=== PATIENT | male | born 1980 | race Caucasian/White ===

== ENCOUNTER 2019-11-13 17:58 | Observation (INO) | payer OTHER, BC ==
--- NOTE | 2019-11-13 20:12 | ER Document Report ---
ED Hand/Wrist Injury - General Chief Complaint: Wrist Injury Stated Complaint: FALL/WRIST INJURY Time Seen by Provider: 11/13/19 20:02 Primary Care Provider: LIA HILILARD MD [Primary Care Provider] - Follow up as needed Notes: 39-year-old male presented to ED for complaint of pain to the right wrist. He states he fell about 4 PM this afternoon. 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 He states he landed on his arm. He is extremely morbidly obese at 209.56 kg. He is alert oriented respirations regular nonlabored speaking in full sentences. He did come by EMS and they did put a splint on his hand. He states it was very tight and felt like his fingers were getting a little numb. We did loosen it and looked at his arm. He will be going for x-rays and then we will reassess him. TRAVEL OUTSIDE OF THE [place] IN LAST 30 DAYS: No - HPI Injury to: Forearm, Wrist Onset: Just prior to arrival Where: Work Timing: Still present Quality of pain: Sharp, Throbbing Severity: Moderate Pain Level: 4 Context: Fall - Related Data Allergies/Adverse Reactions: No Known Allergies Allergy (Verified 12/02/12 09:01) Past Medical History - General Information source: Patient - Social History Smoking Status: Never Smoker Frequency of alcohol use: Rare Drug Abuse: None Lives with: Family Family History: Reviewed & Not Pertinent Patient has homicidal ideation: No - Past Medical History Cardiac Medical History: Reports: Hx Hypertension Pulmonary Medical History: Reports: None EENT Medical History: Reports: None Neurological Medical History: Reports: None Endocrine Medical History: Reports: None Renal/ Medical History: Reports: Hx Benign Prostatic Hyperplasia Malignancy Medical History: Reports None GI Medical History: Reports: None Musculoskeletal Medical History: Reports None Skin Medical History: Reports None Psychiatric Medical History: Reports: Hx Depression Traumatic Medical History: Reports: None Infectious Medical History: Reports: None Surgical Hx: Negative Past Surgical History: Reports: None - Immunizations Hx Diphtheria, Pertussis, Tetanus Vaccination: Yes Review of Systems - Review of Systems Constitutional: No symptoms reported EENT: No symptoms reported Cardiovascular: No symptoms reported Respiratory: No symptoms reported Gastrointestinal: No symptoms reported Genitourinary: No symptoms reported Male Genitourinary: No symptoms reported Musculoskeletal: Joint pain - Right wrist, Joint swelling Skin: No symptoms reported Hematologic/Lymphatic: No symptoms reported Neurological/Psychological: No symptoms reported -: Yes All other systems reviewed and negative Physical Exam - Vital signs Vitals: Temp Pulse Resp BP Pulse Ox 98.5 F 95 16 128/75 H 100 11/13/19 18:06 11/13/19 18:06 11/13/19 18:06 11/13/19 18:06 11/13/19 18:06 Interpretation: Normal - General General appearance: Appears well, Alert - HEENT Head: Normocephalic, Atraumatic Eyes: Normal Pupils: PERRL - Respiratory Respiratory status: No respiratory distress Chest status: Nontender Breath sounds: Normal Chest palpation: Normal - Cardiovascular Rhythm: Regular Heart sounds: Normal auscultation Murmur: No - Abdominal Inspection: Normal Distension: No distension Bowel sounds: Normal Tenderness: Nontender Organomegaly: No organomegaly - Back Back: Normal, Nontender - Extremities General upper extremity: Normal color, Normal temperature General lower extremity: Normal inspection, Nontender, Normal color, Normal ROM, Normal temperature, Normal weight bearing. No: Mary Jane's sign Wrist: Tender, Ecchymosis, Limited ROM - Neurological Neuro grossly intact: Yes Cognition: Normal Orientation: AAOx4 [place] Coma Scale Eye Opening: Spontaneous [place] Coma Scale Verbal: Oriented [place] Coma Scale Motor: Obeys Commands [place] Coma Scale Total: 15 Speech: Normal Motor strength normal: LUE, RUE, LLE, RLE Sensory: Normal - Psychological Associated symptoms: Normal affect, Normal mood - Skin Skin Temperature: Warm Skin Moisture: Dry Skin Color: Normal Course - Vital Signs Vital signs: Temp Pulse Resp BP Pulse Ox 98.5 F 95 16 128/75 H 100 11/13/19 18:06 11/13/19 18:06 11/13/19 18:06 11/13/19 18:06 11/13/19 18:06 Discharge - Discharge Referrals: LIA HILLIARD MD [Primary Care Provider] - Follow up as needed
--- NOTE | 2019-11-13 20:18 | ER Document Report ---
ED Medical Screen (RME) - General Chief Complaint: Wrist Injury Stated Complaint: FALL/WRIST INJURY Time Seen by Provider: 11/13/19 20:02 Primary Care Provider: LIA HILLIARD MD [Primary Care Provider] - Follow up as needed Mode of Arrival: Medic Information source: Patient Notes: 39-year-old male presented to ED for complaint of pain to the right wrist. He states he fell about 4 PM this afternoon. 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 He states he landed on his arm. He is extremely morbidly obese at 209.56 kg. He is alert oriented respirations regular nonlabored speaking in full sentences. He did come by EMS and they did put a splint on his hand. He states it was very tight and felt like his fingers were getting a little numb. We did loosen it and looked at his arm. He will be going for x-rays and then we will reassess him. I have greeted and performed a rapid initial assessment of this patient. A comprehensive ED assessment and evaluation of the patient, analysis of test results and completion of medical decision making process will be conducted by an additional ED providers. TRAVEL OUTSIDE OF THE [place] IN LAST 30 DAYS: No - Related Data Allergies/Adverse Reactions: No Known Allergies Allergy (Verified 12/02/12 09:01) Past Medical History - Social History Frequency of alcohol use: Rare Drug Abuse: None - Past Medical History Cardiac Medical History: Reports: Hx Hypertension Pulmonary Medical History: Reports: None EENT Medical History: Reports: None Neurological Medical History: Reports: None Endocrine Medical History: Reports: None Renal/ Medical History: Reports: Hx Benign Prostatic Hyperplasia Malignancy Medical History: Reports None GI Medical History: Reports: None Musculoskeltal Medical History: Reports None Skin Medical History: Reports None Psychiatric Medical History: Reports: Hx Depression Traumatic Medical History: Reports: None Infectious Medical History: Reports: None Surgical Hx: Negative Past Surgical History: Reports: None - Immunizations Hx Diphtheria, Pertussis, Tetanus Vaccination: Yes Physical Exam - Vital signs Vitals: Temp Pulse Resp BP Pulse Ox 98.5 F 95 16 128/75 H 100 11/13/19 18:06 11/13/19 18:06 11/13/19 18:06 11/13/19 18:06 11/13/19 18:06 Course - Vital Signs Vital signs: Temp Pulse Resp BP Pulse Ox 98.5 F 95 16 128/75 H 100 11/13/19 18:06 11/13/19 18:06 11/13/19 18:06 11/13/19 18:06 11/13/19 18:06 Doctor's Discharge - Discharge Referrals: LIA HILLIARD MD [Primary Care Provider] - Follow up as needed
--- NOTE | 2019-11-13 20:39 | RADIOLOGY REPORT (SQ) ---
CLINICAL INDICATION: fall pain and injury. Pain post fall. TECHNIQUE: 3 view(s) were obtained of the right wrist. COMPARISON: None. FINDINGS: Acute displaced radial styloid fracture. Perilunate dislocation with dorsal displacement and malpositioning of the carpals. Mild osteophyte. Soft tissue swell. IMPRESSION: Acute displaced radial styloid fracture. Perilunate dislocation with dorsal displacement and malpositioning of the carpals.
[2019-11-13] MEDS ORDERED: ONDANSETRON 4 MG TAB.RAPDIS PO ONE (22:53)
[2019-11-13] MEDS ORDERED: OXYCODONE-ACETAMINOPHEN 5-325 MG TABLET PO ONE (22:53)
[2019-11-13] MEDS ORDERED: RINGERS SOLUTION,LACTATED 1,000 ML IV PRN (23:59)
--- NOTE | 2019-11-14 00:08 | ER Document Report ---
ED Hand/Wrist Injury - General Chief Complaint: Wrist Injury Stated Complaint: FALL/WRIST INJURY Time Seen by Provider: 11/13/19 20:02 Primary Care Provider: LIA HILLIARD MD [Primary Care Provider] - Follow up as needed Mode of Arrival: Medic Notes: Patient is a 39-year-old male who comes emergency department chief complaint of fall and injury to his right wrist. 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 He states that he immediately felt a sharp pain in his wrist and had swelling. Patient is not on a blood thinner. He denies any other injuries. In regards to his back he is able to ambulate, denies numbness, states his back does not currently hurt. He denies head injury, he denies any other complaints. Patient is morbidly obese at 209.5 kg. TRAVEL OUTSIDE OF THE [place] IN LAST 30 DAYS: No - Related Data Allergies/Adverse Reactions: No Known Allergies Allergy (Verified 12/02/12 09:01) Past Medical History - General Information source: Patient - Social History Smoking Status: Never Smoker Frequency of alcohol use: Rare Drug Abuse: None Family History: Reviewed & Not Pertinent Patient has homicidal ideation: No - Past Medical History Cardiac Medical History: Reports: Hx Hypertension Pulmonary Medical History: Reports: None EENT Medical History: Reports: None Neurological Medical History: Reports: None Endocrine Medical History: Reports: None Renal/ Medical History: Reports: Hx Benign Prostatic Hyperplasia Malignancy Medical History: Reports None GI Medical History: Reports: None Musculoskeletal Medical History: Reports None Skin Medical History: Reports None Psychiatric Medical History: Reports: Hx Depression Traumatic Medical History: Reports: None Infectious Medical History: Reports: None Surgical Hx: Negative Past Surgical History: Reports: None - Immunizations Hx Diphtheria, Pertussis, Tetanus Vaccination: Yes Physical Exam - Vital signs Vitals: Temp Pulse Resp BP Pulse Ox 98.5 F 95 16 128/75 H 100 11/13/19 18:06 11/13/19 18:06 11/13/19 18:06 11/13/19 18:06 11/13/19 18:06 Course - Vital Signs Vital signs: Temp Pulse Resp BP Pulse Ox 98.5 F 95 16 128/75 H 100 11/13/19 18:06 11/13/19 18:06 11/13/19 18:06 11/13/19 18:06 11/13/19 18:06 Discharge - Discharge Referrals: LIA HILLIARD MD [Primary Care Provider] - Follow up as needed
[2019-11-14] MEDS ORDERED: OXYCODONE-ACETAMINOPHEN 5-325 MG TABLET PO PRN (00:09)
[2019-11-14] MEDS ORDERED: PROPOFOL INJ 200 MG/20 ML VIAL IV ONE ×2 (01:20→16:47)
[2019-11-14] MEDS ORDERED: PROPOFOL 1,000 MG/100 ML INFUS..BTL IV ONE (01:38)
[2019-11-14] MEDS ORDERED: FENTANYL CITRATE INJ/PF 100 MCG/2 ML AMPUL IV ONE ×2 (01:52→01:54)
--- NOTE | 2019-11-14 01:59 | Progress Note ---
Provider Note Provider Note: Procedure note: Preprocedure diagnosis: Right trans-styloid perilunate dislocation Post procedure diagnosis: Same Procedure performed: Closed reduction trans-styloid perilunate dislocation Anesthesia: Conscious sedation Procedure in detail: Patient was placed under consultation under supervision of emergency room physician. Once adequately sedated close reduction region was performed including traction, extension, volar to dorsal directed force of the lunate with flexion of the wrist. This successfully reduced the trans-styloid perilunate dislocation. Patient was then placed in a splint. Patient tolerated procedure well. Post procedure physical examination unchanged. Intact flexion-extension of the digits. No sensory deficits. Cap refill less than 2 seconds.
--- NOTE | 2019-11-14 02:00 | PDOC H&P ---
History of Present Illness Admission Date/PCP: 11/14/19 00:26 MAHSA GRIMES Patient complains of: Right wrist pain History of Present Illness: VIKKI OSORIO is a 39 year old male who sustained a fall onto his outstretched right wrist while at work on concrete. Patient had notable deformity and weakness of his wrist. Was brought by EMS to the emergency room. X-rays demonstrated fracture dislocation. Patient states initially had numbness and tingling although it has improved. Notes pain with any attempted motion of the wrist or digits. Pain 4/5. Past Medical History Cardiac Medical History: Reports: Hypertension Pulmonary Medical History: Reports: None EENT Medical History: Reports: None Neurological Medical History: Reports: None Endocrine Medical History: Reports: None Malignancy Medical History: Reports: None GI Medical History: Reports: None Musculoskeltal Medical History: Reports: None Skin Medical History: Reports: None Psychiatric Medical History: Reports: Depression Traumatic Medical History: Reports: None Infectious Medical History: Reports: None Past Surgical History Past Surgical History: Reports: None Social History Smoking Status: Never Smoker Family History Family History: Reviewed & Not Pertinent Parental Family History Reviewed: No Children Family History Reviewed: No Sibling(s) Family History Reviewed.: No Medication/Allergy Home Medications: No Home Medications 1 12/02/12 Ondansetron HCl [Zofran 4 mg Tablet] 1 - 2 tab PO Q4H PRN #10 tablet 12/02/12 Oxycodone HCl/Acetaminophen [Percocet 5-325 mg Tablet] 1 - 2 tab PO ASDIR PRN #25 tablet 12/02/12 Tamsulosin HCl [Flomax 0.4 mg Cap.sr] 0.4 mg PO DAILY #7 cap.sr.24h 12/02/12 Allergies/Adverse Reactions: No Known Allergies Allergy (Verified 12/02/12 09:01) Review of Systems Constitutional: ABSENT: chills, fever(s), headache(s), weight gain, weight loss Eyes: ABSENT: visual disturbances Ears: ABSENT: hearing changes Cardiovascular: ABSENT: chest pain, dyspnea on exertion, edema, orthropnea, palpitations Respiratory: ABSENT: cough, hemoptysis Gastrointestinal: ABSENT: abdominal pain, constipation, diarrhea, hematemesis, hematochezia, nausea, vomiting Genitourinary: ABSENT: dysuria, hematuria Musculoskeletal: PRESENT: as per HPI Integumentary: ABSENT: rash, wounds Neurological: ABSENT: abnormal gait, abnormal speech, confusion, dizziness, focal weakness, syncope Psychiatric: ABSENT: anxiety, depression, homidical ideation, suicidal ideation Endocrine: ABSENT: cold intolerance, heat intolerance, menstrual abnormalities, polydipsia, polyuria Hematologic/Lymphatic: ABSENT: easy bleeding, easy bruising, lymphadenopathy Physical Exam Vital Signs: Temp Pulse Resp BP Pulse Ox 98.5 F 95 16 128/75 H 100 11/13/19 18:06 11/13/19 18:06 11/13/19 18:06 11/13/19 18:06 11/13/19 18:06 Intake & Output 11/12/19 11/13/19 11/14/19 06:59 06:59 06:59 Weight 209.56 kg General appearance: PRESENT: no acute distress, morbidly obese, well-developed, well-nourished Head exam: PRESENT: atraumatic, normocephalic Eye exam: PRESENT: conjunctiva pink, EOMI, PERRLA. ABSENT: scleral icterus Ear exam: PRESENT: normal external ear exam Mouth exam: PRESENT: moist, tongue midline Neck exam: PRESENT: full ROM. ABSENT: carotid bruit, JVD, lymphadenopathy, thyromegaly Respiratory exam: PRESENT: unlabored Cardiovascular exam: PRESENT: RRR. ABSENT: diastolic murmur, rubs, systolic murmur Pulses: PRESENT: normal dorsalis pedis pul, +2 pedal pulses bilateral Vascular exam: PRESENT: normal capillary refill GI/Abdominal exam: PRESENT: normal bowel sounds, soft. ABSENT: distended, guarding, mass, organolmegaly, rebound, tenderness Rectal exam: PRESENT: deferred Musculoskeletal exam: PRESENT: other - Right wrist: Swelling noted along the radiocarpal joint with no significant deformity. Small abrasion noted dorsally. Intact IP/MP flexion/extension weakness with EPL/FPL. Limited secondary to pain. Compartments soft and compressible no sign of compartment syndrome. Intact sensation to light touch. Radial pulse 2+. Normal cap refill. Normal skin turgor. Neurological exam: PRESENT: alert, awake, oriented to person, oriented to place, oriented to time, oriented to situation, CN II-XII grossly intact. ABSENT: motor sensory deficit Psychiatric exam: PRESENT: appropriate affect, normal mood. ABSENT: homicidal ideation, suicidal ideation Skin exam: PRESENT: dry, intact, warm. ABSENT: cyanosis, rash Results Impressions: Wrist X-Ray 11/13/19 20:07 IMPRESSION: Acute displaced radial styloid fracture. Perilunate dislocation with dorsal displacement and malpositioning of the carpals. Status: Image reviewed by me - I have reviewed patient's radiographs consistent with trans-styloid perilunate dislocation dorsally. Assessment & Plan - Diagnosis (1) Transstyloid-perilunate fracture dislocation Is this a current diagnosis for this admission?: Yes Plan: Patient sustained a trans-styloid perilunate dislocation. Today we discussed treatment options I have recommended proceeding with close reduction emergency room with splinting. Under conscious sedation closed reduction was successful however patient will require definitive fixation. Decision was made to proceed with operative intervention the following day which includes open reduction to fixation of the trans-styloid perilunate dislocation. Details and pathophysiology of patient's injury have been explained including sequelae and prognosis such as limited range of motion, recurrent instability. Both discussed details of postoperative complications or Intra-Op complications including infection, postoperative pain, postoperative stiffness, recurrent instability, infection patient is verbalized understanding consented for open reduction fixation right wrist. - Time Time Spent: 30 to 50 Minutes Medications reviewed and adjusted accordingly: Yes Anticipated Discharge Disposition: Home, Self Care Anticipated Discharge Timeframe: within 48 hours
--- NOTE | 2019-11-14 02:03 | ER Document Report ---
ED General - General Chief Complaint: Wrist Injury Stated Complaint: FALL/WRIST INJURY Time Seen by Provider: 11/13/19 20:02 Mode of Arrival: Medic TRAVEL OUTSIDE OF THE [place] IN LAST 30 DAYS: No - HPI Notes: Patient is a 39-year-old male who presents to the emergency department for evaluation after a fall. He states he fell onto his right wrist. He is left- hand dominant. He is not on blood thinners. He denies hitting his head. Denies losing consciousness. No neck or back pain. He is never had surgery before. - Related Data Allergies/Adverse Reactions: No Known Allergies Allergy (Verified 12/02/12 09:01) Home Medications: Unknown antihypertensive Past Medical History - General Information source: Patient - Social History Smoking Status: Never Smoker Frequency of alcohol use: Rare Drug Abuse: None Family History: Reviewed & Not Pertinent Patient has homicidal ideation: No - Past Medical History Cardiac Medical History: Reports: Hx Hypertension Pulmonary Medical History: Reports: None EENT Medical History: Reports: None Neurological Medical History: Reports: None Endocrine Medical History: Reports: None Renal/ Medical History: Reports: Hx Benign Prostatic Hyperplasia Malignancy Medical History: Reports None GI Medical History: Reports: None Musculoskeletal Medical History: Reports None Skin Medical History: Reports None Psychiatric Medical History: Reports: Hx Depression Traumatic Medical History: Reports: None Infectious Medical History: Reports: None Surgical Hx: Negative Past Surgical History: Reports: None - Immunizations Hx Diphtheria, Pertussis, Tetanus Vaccination: Yes Review of Systems - Review of Systems Musculoskeletal: See HPI -: Yes All other systems reviewed and negative Physical Exam - Vital signs Vitals: Temp Pulse Resp BP Pulse Ox 98.5 F 95 16 128/75 H 100 11/13/19 18:06 11/13/19 18:06 11/13/19 18:06 11/13/19 18:06 11/13/19 18:06 - Notes Notes: This is a morbidly obese 39-year-old male who appears her stated age, no acute distress. Head is normocephalic atraumatic, pupils are equal round, reactive to light. Oral mucosa is moist. Uvula is midline. He is a Mallampati 2. Heart is regular rate and rhythm, lungs are clear to auscultation bilaterally. Abdomen is obese, nontender, normoactive bowel sounds. Patient is awake and alert, neurological exam is nonfocal. He is cooperative with examiner. Examination of the left upper extremity yields tenderness to palpation over the medial aspect of the wrist. There is obvious soft tissue swelling, but physical exam is limited secondary to patient's body habitus. He is neurovascularly intact distally to the left upper extremity. Capillary refill is brisk, radial pulse 2+. Sensation intact. Course - Re-evaluation Re-evalutation: 11/14/19 02:03 Patient presents to the emergency department for evaluation. His x-ray revealed a perilunate dislocation. Dr. Mnodragon was consulted. He did come to the department for evaluating and reduction of this patient. I did perform sedation on this patient, please see separate procedure note. Patient tolerated this well. He was placed in a sugar tong splint, was neurovascularly intact following. Patient will be admitted for further care. - Vital Signs Vital signs: Temp Pulse Resp BP Pulse Ox 98.5 F 95 16 128/75 H 100 11/13/19 18:06 11/13/19 18:06 11/13/19 18:06 11/13/19 18:06 11/13/19 18:06 - Diagnostic Test Radiology reviewed: Image reviewed, Reports reviewed Radiology results interpreted by me: 11/14/19 02:03 Wrist X-Ray 11/13/19 20:07 IMPRESSION: Acute displaced radial styloid fracture. Perilunate dislocation with dorsal displacement and malpositioning of the carpals. Procedures - Conscious Sedation Conscious sedation Time started: 01:44 Time completed: 01:58 Consent obtained: Yes Indication: Reduction of right wrist fracture Prior complications: Procedural sedation Pt with a mild systemic disease.: P2. - ASA Classification. Airway Evaluation: Abnormal 3-3-2 rule, Obese Mallampati Classification: Class 2 Used during procedure: Suction available, IV access obtained, Pulse ox on pt., potline monitor on pt. Medications administered: Diprivan - 160 mg total Reversal agents: None I personally performed/intraservice time: Sedation, 30 min or less Complications: No Discharge - Discharge Clinical Impression: Transstyloid-perilunate fracture dislocation Condition: Stable Disposition: ADMITTED OBSERVATION Admitting Provider: Dr. Mondragon Unit Admitted: Surgical Floor
--- NOTE | 2019-11-14 02:43 | RADIOLOGY REPORT (SQ) ---
EXAM DESCRIPTION: XR WRIST 3 OR MORE VIEWS COMPLETED DATE/TME: 11/14/2019 00:00 CLINICAL HISTORY: 39 years Male, POST REDUCTION COMPARISON: None. Findings: Acute comminuted intra-articular fracture of the right radial styloid includes a 1.9 cm fragment and 0.4 cm distraction. Intra-articular fragments at the right wrist joint measure up to 0.5 cm including the radiocarpal and scapholunate joint. 0.5 cm right scapholunate joint space indicative of scapholunate ligamentous tear. Swelling. Bones, joints, and soft tissues of the RIGHT XR WRIST 3 OR MORE VIEWS appear otherwise unremarkable. IMPRESSION: 1. Acute comminuted intra-articular fracture of the right radial styloid includes a 1.9 cm fragment and 0.4 cm distraction. Intra-articular fragments at the right wrist joint measure up to 0.5 cm including the radiocarpal and scapholunate joint. 2. 0.5 cm right scapholunate joint space indicative of scapholunate ligamentous tear.
[2019-11-14] MEDS: MORPHINE SULFATE 10 MG/ML INJ IV PRN ×4 (03:23→13:58)
[2019-11-14 05:06] LABS: ANION GAP 6 (5-19); BLOOD UREA NITROGEN 14 mg/dL (7-20); CALCIUM 8.6 mg/dL (8.4-10.2); CARBON DIOXIDE 26 mmol/L (22-30); CHLORIDE 106 mmol/L (98-107); GLUCOSE 98 mg/dL (75-110); POTASSIUM 4.1 mmol/L (3.6-5.0)
--- NOTE | 2019-11-14 09:32 | PDOC PROGRESS REPORT ---
Subjective Progress Note for:: 11/14/19 Reason For Visit: Patient lying in bed comfortably. States he continues to have pain in his right wrist. Has noticed some numbness in the thumb and index finger. States morphine does provide some relief although not long-lasting. Physical Exam Vital Signs: Temp Pulse Resp BP Pulse Ox 97.5 F 71 18 162/96 H 99 11/14/19 05:00 11/14/19 05:00 11/14/19 05:00 11/14/19 05:00 11/14/19 05:00 Intake & Output 11/13/19 11/14/19 11/15/19 06:59 06:59 06:59 Weight 185.9 kg Musculoskeletal exam: PRESENT: other - Right wrist: Splint intact. Intact IP flexion/extension. EPL/FPL intact. Intact sharp versus light touch thumb index middle and ring finger. Hypoesthesias noted on the middle and ring finger. Compartments soft and compressible no sign of compartment syndrome. Radial pulse 2+. Cap refill less than 2 seconds. Results Laboratory Results: 11/14/19 00:02 11/14/19 00:02 Sodium 138.0 Potassium 4.1 Chloride 106 Carbon Dioxide 26 Anion Gap 6 BUN 14 Creatinine 0.96 Est GFR ( Amer) > 60 Glucose 98 Calcium 8.6 Impressions: Wrist X-Ray 11/14/19 00:00 IMPRESSION: 1. Acute comminuted intra-articular fracture of the right radial styloid includes a 1.9 cm fragment and 0.4 cm distraction. Intra-articular fragments at the right wrist joint measure up to 0.5 cm including the radiocarpal and scapholunate joint. 2. 0.5 cm right scapholunate joint space indicative of scapholunate ligamentous tear. Assessment & Plan - Diagnosis (1) Transstyloid-perilunate fracture dislocation Is this a current diagnosis for this admission?: Yes Plan: Patient sustained Anderson styloid perilunate fracture dislocation. I have reviewed CT scan which demonstrates no evidence of additional fracture there is avulsion fractures of the scaphoid lunate and likely triquetrum. There is also subluxation of the capitate lunate joint at this point patient is set up for definitive treatment which includes open reduction to fixation perilunate fracture dislocation. Postoperative expectations, outcomes and prognosis have been explained patient is verbalized understanding and consented for surgical procedure. Risk including neurovascular is, infection, postoperative pain, postoperative stiffness, recurrent instability, posttraumatic arthritis. - Time Time Spent with patient: Less than 15 minutes
[2019-11-14 09:43] LABS: HEMATOCRIT 38.5 % (37.9-51.0); HEMOGLOBIN 12.7 g/dL (13.5-17.0); MEAN CORPUSCULAR HEMOGLOBIN 27.3 pg (27.0-33.4); MEAN CORPUSCULAR VOLUME 83 fl (80-97); PLATELET COUNT 253 10^3/uL (150-450); RED BLOOD COUNT 4.65 10^6/uL (4.35-5.55); RED CELL DISTRIBUTION WIDTH 15.5 % (11.5-14.0); WHITE BLOOD COUNT 8.9 10^3/uL (4.0-10.5)
--- NOTE | 2019-11-14 10:26 | RADIOLOGY REPORT (SQ) ---
EXAM DESCRIPTION: CT RT UPPER EXTREMITY WITHOUT IMAGES COMPLETED DATE/TIME: 11/14/2019 8:20 am REASON FOR STUDY: post reduction COMPARISON: 11/14/2019 and 11/13/2019. TECHNIQUE: Axial imaging performed through the right wrist with reformatted coronal and sagittal bhavna ging windowed for bone and soft tissues. Images saved to PACS. 3D IMAGING: Were 3D images as MIP, SSD, or volume rendering performed at the work station? Yes. All CT scanners at this facility use dose modulation, iterative reconstruction, and/or weight based d osing when appropriate to reduce radiation dose to as low as reasonably achievable (ALARA). [facility]: Dose Right [facility]: CareDose [facility]: Dose Right [facility]: Teradose 4D [facility]: [employer] Technologies LIMITATIONS: None. RADIATION DOSE: CT Rad equipment meets quality standard of care and radiation dose reduction techniq ues were employed. CTDIvol: 4.6 mGy. DLP: 104 mGy-cm. mGy. FINDINGS: There is complex fracture dislocation. There is a displaced fracture of the radial styloi d which is displaced laterally and posteriorly. Approximately 8 mm displacement of the fracture frag ment from the distal portion the radius. The scaphoid is subluxed laterally and interposed between t he distal radius and radial fragment. There is marked separation between the scaphoid and lunate, wi th 14 mm of separation. The capitate is displaced laterally and dorsally in relation to the lunate. There is also mild anterior and lateral displacement of the lunate with respect to the radius with d orsal tilt. The triquetrum is interposed between the lunate and hamate. There are several tiny bony fragments along the dorsal wrist visualized on the sagittal images, likely originating from the scap hoid. There are also tiny bony fragments located lateral and inferior to the lunate, likely originat ing from the triquetrum. There is a 4.4 mm bony fragment posterior to the base of the capitate. Unc lear origin of this fracture fragment. There is also a 5 mm bony fragment anterior to the hook of th e hamate. IMPRESSION: COMPLEX FRACTURE DISLOCATION. TECHNICAL DOCUMENTATION: JOB ID: [id number] Quality ID # [id number]: Final reports with documentation of one or more dose reduction techniques (e.g., Au tomated exposure control, adjustment of the mA and/or kV according to patient size, use of iterative reconstruction technique) 2010 [employer]- All Rights Reserved Reading location - IP/workstation name: [email or web address]
[2019-11-14] MEDS ORDERED: SUCCINYLCHOLINE CHLORIDE INJ 200 MG/10 ML VIAL ONE (15:27)
[2019-11-14] MEDS ORDERED: BUPIVACAINE HCL 0.5 % INJ/PF 30 ML SDV ONE (16:42)
[2019-11-14] MEDS ORDERED: MIDAZOLAM 2 MG/2 ML INJ ONE (16:46)
[2019-11-14] MEDS ORDERED: FENTANYL CITRATE INJ/PF 100 MCG/2 ML AMPUL ONE ×2 (16:46→18:38)
[2019-11-14] MEDS ORDERED: ONDANSETRON HCL INJ/PF 4 MG/2 ML SDV ONE (16:46)
[2019-11-14] MEDS ORDERED: ALBUTEROL SULFATE HFA (90 MCG/PUFF) 8 GM MDI IH ONE (17:17)
[2019-11-14] MEDS ORDERED: CEFAZOLIN INJ 1 GM VIAL ONE (17:17)
[2019-11-14] MEDS ORDERED: DIPHENHYDRAMINE HCL 50 MG/ML VIAL IV PRN (17:53)
[2019-11-14] MEDS ORDERED: MEPERIDINE HCL/PF INJ 25 MG/1 ML DISP.SYRIN IV PRN (17:53)
[2019-11-14] MEDS ORDERED: MORPHINE SULFATE 10 MG/ML INJ IV PRN (17:53)
[2019-11-14] MEDS ORDERED: FENTANYL CITRATE INJ/PF 100 MCG/2 ML AMPUL IV PRN ×3 (17:53)
[2019-11-14] MEDS ORDERED: ONDANSETRON HCL INJ/PF 4 MG/2 ML SDV IV PRN (17:53)
[2019-11-14] MEDS ORDERED: PROMETHAZINE HCL INJ 25 MG/1 ML VIAL IV PRN ×2 (17:53)
[2019-11-14] MEDS: CEFAZOLIN 2 GM/D5W RTU 2 GM/50 ML RTUPB IV SCH ×2 (18:11→23:34)
--- NOTE | 2019-11-14 19:26 | EKG REPORT ---
SEVERITY:- NORMAL ECG - SINUS RHYTHM : Confirmed by: Suresh Mcnulty MD 14-Nov-2019 19:25:41
[2019-11-14] MEDS ORDERED: KETOROLAC TROMETHAMINE INJ/PF 30 MG/1 ML SDV IV PRN (20:09)
--- NOTE | 2019-11-14 20:32 | Operative Report ---
Operative Report DATE OF SURGERY: 11/14/19 PREOPERATIVE DIAGNOSIS: Right wrist trans-styloid perilunate fracture dislocati on POSTOPERATIVE DIAGNOSIS: Same OPERATION: Open reduction internal fixation right trans-styloid perilunate dislocation. Open right carpal tunnel release SURGEON: MARINA CASTRO ANESTHESIA: GA COMPLICATIONS: None ESTIMATED BLOOD LOSS: Minimal PROCEDURE: Indication for above procedure: 39-year-old male who sustained a fall onto his outstretched right wrist. Given patient's larger size this resulted in increased energy a fall resulting in a trans-styloid perilunate dislocation. Patient was seen the emergency room where this was reduced and placed in a splint. CT scan postop he demonstrated recurrence of his subluxation given the severity of his injury along with preoperative numbness decision was made to treat with operative intervention which include open reduction internal fixation with open carpal tunnel release right trans-styloid perilunate dislocation. Procedure In Detail: Patient was seen and evaluated in the preoperative holding area. The RIGHT upper extremity was initialized and marked. Patient received 2g of Ancef IV for bacterial prophylaxis. Patient was taken back to the operative room where transferred to the operative table and placed under general anesthesia. Once they were adequately anesthetized a nonsterile tourniquet was placed on the upper extremity. Patient had considerable contamination of his hands with oil and dirt this was pre-cleansed with chlorhexidine scrub. A surgical team debriefing was performed ensuring all instrumentation was available, the surgical procedure was discussed with possible concerns reviewed. The upper extremity was prepped with chlorhexidine and alcohol and draped in a sterile fashion. A timeout was done identifying correct patient, procedure and extremity everyone in attendance agree with this and verbalized no concerns. The extremity was exsanguinated the tourniquet was inflated to 250 mmHg. Longitudinal skin incision was made in line with the radial border of the middle finger and extended ulnarly with a Brittany extension proximal to the wrist crease. Blunt dissection was performed palmar fascia was incised in line with the skin incision exposing the transverse carpal ligament. The transverse carpal ligament was then released distally to the adipose protecting the superficial palmar arch. There was hematoma within the carpal canal. Notable compression at the wrist flexion crease with hourglassing of the nerve no e vidence of nerve discontinuity. The volar antebrachial fascia was then released freeing the nerve. Wound was copiously irrigated with normal saline. And peripheral veins were coagulated bipolar cautery. Skin was then closed with interrupted 3-0 nylon suture. Monitored skin incision was made in line with the third metacarpal just proximal to Mika's tubercle. Blunt dissection was performed. Superficial radial nerve was identified and protected. Third dorsal compartment was released and EPL tendon transposed radially. The distal portion of the extensor retinaculum was released and extensor tendons retracted ulnarly. The wrist capsule was identified there is complete tear of the dorsal radial carpal ligament from the radius capsulotomy was made in a Chamberlain type fashion radially based to expose the underlying carpus. There is significant malalignment of the carpus with multiple avulsion fractures. Wound was then copiously irrigated with normal saline. Any loose bodies were excised. There is notable chondral damage along the proximal aspect of the capitate and radial aspect of the scaphoid. Avulsion of the scapholunate ligament from the scaphoid was noted. There is also fracture of the radial styloid tip with the attachment of the radial collateral ligament. Joystick 0.062 K wires were placed within the scaphoid and lunate reducing the scapholunate interval. Skin incision was made along the radial styloid blunt dissection was performed. A 0.062 K wire was placed across the scapholunate interval obtaining provisional fixation. A 0.045 K wire was then placed p roviding further fixation. Under direct visualization the capitate lunate articulation was reduced, this was secured with a scaphoid capitate pin. The radial styloid fragment was reduced and held with 20.045 K wires. While maintaining reduction of the lunate and triquetral interval a total of 20.062 K wires were placed along the LT interval. C-arm fluoroscopy was then obtained demonstrating acceptable reduction of the midcarpal joint, scaphoid lunate and lunotriquetral interval with worship of Gilulas lines. K wires were then cut below the skin. Attention then turned to ligament repair. A Arthrex suture anchor was placed along the dorsal aspect of the scaphoid under C arm guidance. The scapholunate ligament was then repaired with a Han-Tayo type suture. A dorsal capsulodesis was performed bringing a strip of dorsal intercarpal ligament was then utilized and secured to the distal radius with a Arthrex bio composite suture tack. The remainder of the capsule was then tied pants over vest with 3-0 Ethibond and 2-0 FiberWire suture. C arm fluoroscopy was then obtained demonstrating acceptable alignment. Wounds were then copiously irrigated with normal saline. Tourniquet was deflated. A superficial vein along the dorsum of the wrist was tied off with silk suture. Remainder of the bleeding was controlled with bipolar cautery into the wounds were dry. Subcutaneous tissue was closed with 3-0 Monocryl suture. Skin was closed with running horizontal mattress 3-0 nylon suture. 30 cc of 0.5% bupivacaine without epinephrine was injected for postoperative pain c ontrol. Wound was dressed Xeroform for fours and patient was placed in a sugar tong splint. Sponge counts, instrument counts, needle counts were correct. Patient was then awoken from anesthesia. Transferred from the operating room table to the operating room stretcher. There was no intraoperative complications patient tolerated procedure well stable to PACU. Postop plan: Patient will follow-up in the office in 2 weeks at which point we will be transition to short arm cast. We will obtain x-rays at that time. Plan will be for pin removal in the operating room at approximately 10-12 weeks.
--- NOTE | 2019-11-14 22:35 | PDOC CONSULTATION ---
Consultation Consult Date: 11/14/19 Provider Consulted: MELISSA JOSE Consult reason:: SHERMAN History of Present Illness Admission Date/PCP: 11/14/19 00:26 MAHSA GRIMES History of Present Illness: VIKKI OSORIO is a 39 year old male who is here for ORIF of the wrist fracture admitted by Dr. Mondragon. He has a history of obstructive sleep apnea and uses CPAP at home. Our service was consulted for management of SHERMAN. Past Medical History Cardiac Medical History: Reports: Hypertension Pulmonary Medical History: Reports: None EENT Medical History: Reports: None Neurological Medical History: Reports: None Endocrine Medical History: Reports: None Malignancy Medical History: Reports: None GI Medical History: Reports: None Musculoskeltal Medical History: Reports: None Skin Medical History: Reports: None Psychiatric Medical History: Reports: Depression Traumatic Medical History: Reports: None Infectious Medical History: Reports: None Past Surgical History Past Surgical History: Reports: None Social History Smoking Status: Never Smoker Hx Recreational Drug Use: No Hx Prescription Drug Abuse: No - Advance Directive Resuscitation Status: Full Code Family History Family History: Reviewed & Not Pertinent Parental Family History Reviewed: Yes Children Family History Reviewed: NA Sibling(s) Family History Reviewed.: Yes Medication/Allergy Home Medications: Tamsulosin HCl [Flomax 0.4 mg Cap.sr] 0.4 mg PO DAILY #7 cap.sr.24h 12/02/12 Amlodipine Besylate [Norvasc 10 mg Tablet] 10 mg PO DAILY 11/14/19 Bupropion HCl [Bupropion Xl] 150 mg PO DAILY 11/14/19 Furosemide [Lasix 20 mg Tablet] 20 mg PO DAILY 11/14/19 Ketorolac Tromethamine [Toradol 10 mg Tablet] 10 mg PO Q8HP PRN #12 tablet 11/14/19 Oxycodone HCl/Acetaminophen [Percocet 10-325 Mg Tablet] 1 each PO Q6 PRN #25 tablet 11/14/19 Allergies/Adverse Reactions: No Known Allergies Allergy (Verified 12/02/12 09:01) Review of Systems All systems: reviewed and no additional remarkable complaints except as stated - All systems were reviewed and were negative Physical Exam Vital Signs: Temp Pulse Resp BP Pulse Ox 98.1 F 75 24 H 161/98 H 90 L 11/14/19 21:07 11/14/19 21:07 11/14/19 21:07 11/14/19 21:07 11/14/19 21:07 Intake & Output 11/13/19 11/14/19 11/15/19 06:59 06:59 06:59 Intake Total 1350 Output Total 10 Balance 1340 Weight 185.9 kg General appearance: PRESENT: no acute distress, cooperative, disheveled, morbidly obese Head exam: PRESENT: atraumatic, normocephalic Eye exam: PRESENT: EOMI, PERRLA. ABSENT: conjunctival injection, nystagmus, scleral icterus Ear exam: PRESENT: normal external ear exam Mouth exam: PRESENT: moist, neck supple Throat exam: ABSENT: post pharyngeal erythema Neck exam: PRESENT: full ROM. ABSENT: carotid bruit, JVD, lymphadenopathy, meningismus, tenderness, thyromegaly Respiratory exam: PRESENT: clear to auscultation salome, symmetrical, unlabored. ABSENT: accessory muscle use, chest wall tenderness, crackles, prolonged expiratory phas, rhonchi, tachypnea, wheezes Cardiovascular exam: PRESENT: RRR, +S1, +S2 Pulses: PRESENT: normal carotid pulses Vascular exam: PRESENT: normal capillary refill GI/Abdominal exam: PRESENT: normal bowel sounds, soft. ABSENT: distended, guarding, rebound, tenderness Extremities exam: PRESENT: other - Right upper extremity is in a sling and a splint. ABSENT: clubbing, pedal edema Musculoskeletal exam: PRESENT: normal inspection. ABSENT: deformity Neurological exam: PRESENT: alert, awake, oriented to person, oriented to place, oriented to situation, CN II-XII grossly intact. ABSENT: motor sensory deficit Psychiatric exam: PRESENT: appropriate affect, normal mood Skin exam: PRESENT: dry, warm Results Laboratory Results: 11/14/19 03:47 11/14/19 00:02 11/14/19 11/14/19 00:02 03:47 WBC 8.9 RBC 4.65 Hgb 12.7 L Hct 38.5 MCV 83 MCH 27.3 MCHC 33.0 RDW 15.5 H Plt Count 253 Sodium 138.0 Potassium 4.1 Chloride 106 Carbon Dioxide 26 Anion Gap 6 BUN 14 Creatinine 0.96 Est GFR ( Amer) > 60 Glucose 98 Calcium 8.6 Impressions: Upper Extremity CT 11/14/19 00:00 IMPRESSION: COMPLEX FRACTURE DISLOCATION. Assessment and Plan - Diagnosis (1) Obstructive sleep apnea Is this a current diagnosis for this admission?: Yes Plan: He is on CPAP at home, starts at 7 and ramps up to 14. If our machine can do that we will set it to do so, otherwise we will just put him on his sleep setting at 14. - Time Time Spent with patient: 35 or more minutes Anticipated Discharge Disposition: Home, Self Care Anticipated Discharge Timeframe: within 24 hours
[2019-11-14] MEDS: OXYCODONE HCL SR 10 MG TABLET PO SCH (22:38)
[2019-11-15 05:36] LABS: ABSOLUTE LYMPHOCYTES (AUTO) 1.3 10^3/uL (0.5-4.7); ABSOLUTE MONOCYTES (AUTO) 1.3 10^3/uL (0.1-1.4); ABSOLUTE NEUT (AUTO) 8.3 10^3/uL (1.7-8.2); BASOPHILS % (AUTO) 0.2 % (0-2); EOSINOPHILS % (AUTO) 0.4 % (0-6); HEMATOCRIT 41.9 % (37.9-51.0); HEMOGLOBIN 13.9 g/dL (13.5-17.0); LYMPHOCYTES % (AUTO) 11.6 % (13-45); MEAN CORPUSCULAR HEMOGLOBIN 27.6 pg (27.0-33.4); MEAN CORPUSCULAR HGB CONC 33.3 g/dL (32.0-36.0); MEAN CORPUSCULAR VOLUME 83 fl (80-97); MONOCYTES % (AUTO) 11.6 % (3-13); PLATELET COUNT 255 10^3/uL (150-450); RED BLOOD COUNT 5.05 10^6/uL (4.35-5.55); RED CELL DISTRIBUTION WIDTH 15.4 % (11.5-14.0); SEGMENTED NEUTROPHILS % (AUTO) 76.2 % (42-78); TOTAL CELLS COUNTED % (AUTO) 100 %; WHITE BLOOD COUNT 10.9 10^3/uL (4.0-10.5)
[2019-11-15] MEDS: CEFAZOLIN 2 GM/D5W RTU 2 GM/50 ML RTUPB IV SCH (06:38)
[2019-11-15 08:29] VITALS: BP 149/83
--- NOTE | 2019-11-15 08:56 | RADIOLOGY REPORT (SQ) ---
EXAM DESCRIPTION: WRIST RIGHT 3 VIEWS; NO CHG FLUORO IMAGES COMPLETED DATE/TIME: 11/14/2019 7:46 pm REASON FOR STUDY: PERC PINNING AND ANCHOR PLACEMENT COMPARISON: None. FLUOROSCOPY TIME: 2 minutes and 22 seconds. 7 images submitted to PACS. TECHNIQUE: Intra-operative fluoroscopic images of the right wrist were obtained to evaluate progress . NUMBER OF IMAGES: 7 LIMITATIONS: None. FINDINGS: Refer to the separate operative report. IMPRESSION: IMAGE(S) OBTAINED DURING PROCEDURE. COMMENT: Quality ID [id number]: Final reports for procedures using fluoroscopy that document radiation exp osure indices, or exposure time and number of fluorographic images (if radiation exposure indices are not available) Please consult full operative report of the attending physician for description of the procedure. TECHNICAL DOCUMENTATION: JOB ID: [id number] 2010 [employer]- All Rights Reserved Reading location - IP/workstation name: [email or web address]
--- NOTE | 2019-11-15 08:56 | RADIOLOGY REPORT (SQ) ---
EXAM DESCRIPTION: WRIST RIGHT 3 VIEWS; NO CHG FLUORO IMAGES COMPLETED DATE/TIME: 11/14/2019 7:46 pm REASON FOR STUDY: PERC PINNING AND ANCHOR PLACEMENT COMPARISON: None. FLUOROSCOPY TIME: 2 minutes and 22 seconds. 7 images submitted to PACS. TECHNIQUE: Intra-operative fluoroscopic images of the right wrist were obtained to evaluate progress . NUMBER OF IMAGES: 7 LIMITATIONS: None. FINDINGS: Refer to the separate operative report. IMPRESSION: IMAGE(S) OBTAINED DURING PROCEDURE. COMMENT: Quality ID [id number]: Final reports for procedures using fluoroscopy that document radiation exp osure indices, or exposure time and number of fluorographic images (if radiation exposure indices are not available) Please consult full operative report of the attending physician for description of the procedure. TECHNICAL DOCUMENTATION: JOB ID: [id number] 2010 [employer]- All Rights Reserved Reading location - IP/workstation name: [email or web address]
[2019-11-15] MEDS: OXYCODONE HCL SR 10 MG TABLET PO SCH (09:34)
[2019-11-15] MEDS ORDERED: FUROSEMIDE 20 MG TABLET PO SCH (10:00)
[2019-11-15] MEDS ORDERED: TAMSULOSIN HCL 0.4 MG CAP.SR.24H PO SCH (10:00)
[2019-11-15] MEDS ORDERED: ASPIRIN 325 MG TABLET PO SCH (10:00)
[2019-11-15] MEDS ORDERED: (PENDING PHARMACY ID) (Bupropion Hcl [Bupropion Xl] 150 MG) PO SCH (10:00)
[2019-11-15] MEDS ORDERED: AMLODIPINE BESYLATE 10 MG TABLET PO SCH (10:00)
--- NOTE | 2019-11-28 14:32 | PDOC DISCHARGE SUMMARY ---
Impression - Admit/DC Date/PCP Admission Date/Primary Care Provider: 11/14/19 00:26 MAHSA GRIMES Discharge Date: 11/15/19 - Discharge Diagnosis (1) Transstyloid-perilunate fracture dislocation Is this a current diagnosis for this admission?: Yes - Additional Information Resuscitation Status: Full Code Discharge Diet: As Tolerated Discharge Activity: Balance Activity w/Rest, No Lifting Over 10 Pounds, No Lifting/Push/Pulling Referrals: EMANUEL CASTRO DO [ACTIVE STAFF] - 11/24/19 8:00 am Prescriptions: Ketorolac Tromethamine [Toradol 10 mg Tablet] 10 mg PO Q8HP PRN #12 tablet PRN Reason: Oxycodone HCl/Acetaminophen [Percocet 10-325 Mg Tablet] 1 each PO Q6 PRN #25 tablet PRN Reason: Home Medications: Tamsulosin HCl [Flomax 0.4 mg Cap.sr] 0.4 mg PO DAILY #7 cap.sr.24h 12/02/12 Amlodipine Besylate [Norvasc 10 mg Tablet] 10 mg PO DAILY 11/14/19 Bupropion HCl [Bupropion Xl] 150 mg PO DAILY 11/14/19 Furosemide [Lasix 20 mg Tablet] 20 mg PO DAILY 11/14/19 Ketorolac Tromethamine [Toradol 10 mg Tablet] 10 mg PO Q8HP PRN #12 tablet 11/14/19 Oxycodone HCl/Acetaminophen [Percocet 10-325 Mg Tablet] 1 each PO Q6 PRN #25 tablet 11/14/19 History of Present Illiness History of Present Illness: VIKKI OSORIO is a 39 year old male who sustained a fall onto his outstretched right wrist while at work on concrete. Patient had notable deformity and weakness of his wrist. Was brought by EMS to the emergency room. X-rays demonstrated fracture dislocation. Patient states initially had numbness and tingling although it has improved. Notes pain with any attempted motion of the wrist or digits. Pain 4/5. Hospital Course Hospital Course: Patient underwent close reduction in the emergency room which successfully reduced fracture. CT scan was done demonstrating residual subluxation of the midcarpal joint. Patient underwent open reduction internal fixation trans- styloid fracture dislocation on 11/14/2019 which patient tolerated procedure w ell.. Postoperatively he was started on pain medication. He notes the numbness and tingling in his fingertips did improve. Hospitalist was admitted postoperatively given patient's history of obstructive sleep apnea. Patient had no issues postop and pain was controlled. At that point decision was made for discharge to home. Physical Exam Vital Signs: Temp Pulse Resp BP Pulse Ox 98.8 F 80 20 149/83 H 100 11/15/19 10:07 11/15/19 10:07 11/15/19 10:07 11/15/19 10:07 11/15/19 10:07 General appearance: PRESENT: no acute distress, morbidly obese, well-developed, well-nourished Head exam: PRESENT: atraumatic, normocephalic Eye exam: PRESENT: conjunctiva pink, EOMI, PERRLA. ABSENT: scleral icterus Ear exam: PRESENT: normal external ear exam Mouth exam: PRESENT: moist, tongue midline Neck exam: ABSENT: carotid bruit, JVD, lymphadenopathy, thyromegaly Respiratory exam: PRESENT: clear to auscultation salome. ABSENT: rales, rhonchi, wheezes Cardiovascular exam: PRESENT: RRR. ABSENT: diastolic murmur, rubs, systolic murmur Pulses: PRESENT: normal dorsalis pedis pul Vascular exam: PRESENT: normal capillary refill GI/Abdominal exam: PRESENT: normal bowel sounds, soft. ABSENT: distended, guarding, mass, organolmegaly, rebound, tenderness Rectal exam: PRESENT: deferred Extremities exam: PRESENT: full ROM. ABSENT: calf tenderness, clubbing, pedal edema Musculoskeletal exam: PRESENT: other - Right wrist: Splint clean/dry/intact no erythema or drainage. Compartments soft and compressible no sign of compartment syndrome. No pain with passive extension. Intact IP/MP flexion/extension. Cap refill less than 2 seconds. Neurological exam: PRESENT: alert, awake, oriented to person, oriented to place, oriented to time, oriented to situation, CN II-XII grossly intact. ABSENT: motor sensory deficit Psychiatric exam: PRESENT: appropriate affect, normal mood. ABSENT: homicidal ideation, suicidal ideation Skin exam: PRESENT: dry, intact, warm. ABSENT: cyanosis, rash Results Laboratory Results: WBC 10.9 10^3/uL (4.0-10.5) H 11/15/19 05:16 RBC 5.05 10^6/uL (4.35-5.55) 11/15/19 05:16 Hgb 13.9 g/dL (13.5-17.0) 11/15/19 05:16 Hct 41.9 % (37.9-51.0) 11/15/19 05:16 MCV 83 fl (80-97) 11/15/19 05:16 MCH 27.6 pg (27.0-33.4) 11/15/19 05:16 MCHC 33.3 g/dL (32.0-36.0) 11/15/19 05:16 RDW 15.4 % (11.5-14.0) H 11/15/19 05:16 Plt Count 255 10^3/uL (150-450) 11/15/19 05:16 Lymph % (Auto) 11.6 % (13-45) L 11/15/19 05:16 [place] % (Auto) 11.6 % (3-13) 11/15/19 05:16 Eos % (Auto) 0.4 % (0-6) 11/15/19 05:16 Baso % (Auto) 0.2 % (0-2) 11/15/19 05:16 Absolute Neuts (auto) 8.3 10^3/uL (1.7-8.2) H 11/15/19 05:16 Absolute Lymphs (auto) 1.3 10^3/uL (0.5-4.7) 11/15/19 05:16 Absolute Monos (auto) 1.3 10^3/uL (0.1-1.4) 11/15/19 05:16 Absolute Eos (auto) 0.0 10^3/uL (0.0-0.6) 11/15/19 05:16 Absolute Basos (auto) 0.0 10^3/uL (0.0-0.2) 11/15/19 05:16 Seg Neutrophils % 76.2 % (42-78) 11/15/19 05:16 Sodium 138.0 mmol/L (137-145) 11/14/19 00:02 Potassium 4.1 mmol/L (3.6-5.0) 11/14/19 00:02 Chloride 106 mmol/L (98-107) 11/14/19 00:02 Carbon Dioxide 26 mmol/L (22-30) 11/14/19 00:02 Anion Gap 6 (5-19) 11/14/19 00:02 BUN 14 mg/dL (7-20) 11/14/19 00:02 Creatinine 0.96 mg/dL (0.52-1.25) 11/14/19 00:02 Est GFR ( Amer) > 60 (>60) 11/14/19 00:02 Est GFR (MDRD) Non-Af > 60 (>60) 11/14/19 00:02 Glucose 98 mg/dL (75-110) 11/14/19 00:02 Calcium 8.6 mg/dL (8.4-10.2) 11/14/19 00:02 SARS-CoV-2 (PCR) NEGATIVE (NEGATIVE) 11/14/19 03:31 Impressions: Wrist X-Ray 11/13/19 20:07 IMPRESSION: Acute displaced radial styloid fracture. Perilunate dislocation with dorsal displacement and malpositioning of the carpals. Fluoroscopy 11/14/19 00:00 IMPRESSION: IMAGE(S) OBTAINED DURING PROCEDURE. Upper Extremity CT 11/14/19 00:00 IMPRESSION: COMPLEX FRACTURE DISLOCATION. Wrist X-Ray 11/14/19 00:00 IMPRESSION: 1. Acute comminuted intra-articular fracture of the right radial styloid includes a 1.9 cm fragment and 0.4 cm distraction. Intra-articular fragments at the right wrist joint measure up to 0.5 cm including the radiocarpal and scapholunate joint. 2. 0.5 cm right scapholunate joint space indicative of scapholunate ligamentous tear. Wrist X-Ray 11/14/19 00:00 IMPRESSION: IMAGE(S) OBTAINED DURING PROCEDURE. Plan Plan of Treatment: Schedule Follow Up w/ Dr. Emanuel Castro @ [facility] for Surgery to be seen in 10-14 days or as scheduled [place]: [place]: [place]: Ice and elevate Keep splint clean/dry/intact, do not remove. If your fingers become numb please unwrap the Abhinav wrap but leave the splint in place, if the sensation does not return within 30 minutes please return to the emergency department. May begin finger range of motion attempting to make full fist. Please use ibuprofen (Motrin or Advil) 600-800 mg every 8 hours as needed for pain or fever DO NOT TAKE w/ TORADOL may use once TORADOL complete. You may also use acetaminophen (Tylenol) 1000 mg every 4-6 hours as needed for pain or fever. Please be aware that many medications contain acetaminophen, do not exceed a total of 1000 mg of acetaminophen every 6 hours. If ibuprofen and acetaminophen are not sufficient for your pain you may take the Percocet/[place]. Please be aware that the Percocet/[place] does contain Tylenol. Stool softener of choice when on pain medication. USE OF [id number] IBUPROFEN: Ibuprofen (Advil, Nuprin, Medipren, Motrin IB) is a medication for fever and pain control. In addition, it has anti- inflammatory effects which may be beneficial, especially in the treatment of injuries. It's best to take ibuprofen with food. Persons with ulcer disease or allergy to aspirin should notify their physician of this before taking ibuprofen. Ibuprofen can be given every four to six hours, for a total of four doses daily. Age Pain or fever dose Antiinflammatory dose 6-8 yr 200 mg (1 tab) 200 mg (1 tab) 9-11 yr 200 mg (1 tab) 200-400 mg (1-2 tab) 11-14 yr 200-400 mg (1-2 tab) 400 mg (2 tab) 15-adult 400 mg (2 tab) 600 mg (3 tab) ORAL NARCOTIC MEDICATION: You have been given a prescription for pain control. This medication is a narcotic. It's best taken with food, as nausea can result if taken on an empty stomach. Don't operate machinery or drive within six hours of taking this medication. Do not combine this medicine with alcohol, or with any medication which can cause sedation (such as cold tablets or sleeping pills) unless you get permission from the physician. Narcotics tend to cause constipation. If possible, drink plenty of fluids and eat a diet high in fiber and fruits. Please be aware that prescription narcotics also have the potential for abuse. People become addicted to these medications because of the general sense of wellbeing that they induce. This feeling along with a significant reduction in tension, anxiety, and aggression provides a stimulating seductive quality to these drugs. Once your pain is under control, we encourage you to discard your unused narcotics. Stroke Is this a Stroke Patient?: No Acute Heart Failure - Is this a Heart Failure Patient?: No
== END 2019-11-15 10:40 | disposition home or self-care (01) ==
LOC: ER 17:58 → EH 11-14 00:26 → 4S 11-14 04:30
PROVIDERS: ADMIT Orthopaedic Surgery; ATTEND Orthopaedic Surgery
DX: S52.511A Displaced fracture of right radial styloid process, initial encounter for closed fracture (principal); S62.121A Displaced fracture of lunate [semilunar], right wrist, initial encounter for closed fracture; S62.001A Unspecified fracture of navicular [scaphoid] bone of right wrist, initial encounter for closed fracture; W19.XXXA Unspecified fall, initial encounter; Y99.0 Civilian activity done for income or pay; G47.33 Obstructive sleep apnea (adult) (pediatric); E66.01 Morbid (severe) obesity due to excess calories; R20.1 Hypoesthesia of skin; I10 Essential (primary) hypertension; F32.9 Major depressive disorder, single episode, unspecified; Z79.899 Other long term (current) drug therapy; Z03.818 Encounter for observation for suspected exposure to other biological agents ruled out
CPT/HCPCS: 25685; 25680; 64721; 99285; 36415 ×2; 85025; 85027; 87635; 80048; 73110 ×2; 73200; 93005; 93010; 94660 ×2; 01830; G0378 ×3; C1713 ×3; J2250; J3490; J0690 ×3; S0119; J3010; J2704 ×2; J1885; J2270; J0330; J2405; J7120; C9803

== ENCOUNTER 2020-01-22 09:56 | Day surgery (SDC) | payer OTHER, BC ==
[~2020-01-22 09:56] MED LIST: CEFAZOLIN SODIUM 3 GM in DEXTROSE 5%-WATER 100 ML IV PRN; LACTATED RINGERS 1000 ML IV PRN; LIDOCAINE 0.5% INJ-PF (5 MG/ML) 50 ML SDV SUBCUT PRN
[2020-01-22] MEDS ORDERED: LIDOCAINE 1% INJ-PF (10 MG/ML) 30 ML SDV ONE (10:27)
[2020-01-22 10:57] LABS: HEMATOCRIT 40.3 % (37.9-51.0); HEMOGLOBIN 13.8 g/dL (13.5-17.0); MEAN CORPUSCULAR HEMOGLOBIN 27.9 pg (27.0-33.4); MEAN CORPUSCULAR HGB CONC 34.2 g/dL (32.0-36.0); MEAN CORPUSCULAR VOLUME 82 fl (80-97); PLATELET COUNT 224 10^3/uL (150-450); RED BLOOD COUNT 4.94 10^6/uL (4.35-5.55); RED CELL DISTRIBUTION WIDTH 15.5 % (11.5-14.0); WHITE BLOOD COUNT 4.9 10^3/uL (4.0-10.5)
[2020-01-22] MEDS ORDERED: LIDOCAINE 2% INJ-PF (20 MG/ML) 10 ML AMPUL ONE (10:57)
[2020-01-22] MEDS ORDERED: ONDANSETRON HCL INJ/PF 4 MG/2 ML SDV ONE (10:57)
[2020-01-22] MEDS ORDERED: KETAMINE HCL INJ 500 MG/10 ML VIAL ONE (10:57)
[2020-01-22] MEDS ORDERED: MIDAZOLAM 2 MG/2 ML INJ ONE (10:57)
[2020-01-22] MEDS ORDERED: FENTANYL CITRATE INJ/PF 100 MCG/2 ML AMPUL ONE (10:57)
[2020-01-22] MEDS ORDERED: PROPOFOL INJ 200 MG/20 ML VIAL IV ONE (10:58)
[2020-01-22] MEDS ORDERED: DEXMEDETOMIDINE INJ 80 MCG/20 ML VIAL IV ONE (10:58)
[2020-01-22] MEDS ORDERED: ONDANSETRON HCL INJ/PF 4 MG/2 ML SDV IV PRN ×2 (11:10→12:12)
[2020-01-22] MEDS ORDERED: PROMETHAZINE HCL INJ 25 MG/1 ML VIAL IV PRN ×2 (11:10)
[2020-01-22] MEDS ORDERED: OXYCODONE-ACETAMINOPHEN 5-325 MG TABLET PO PRN ×3 (11:10→12:12)
[2020-01-22] MEDS ORDERED: DIPHENHYDRAMINE HCL 50 MG/ML VIAL IV PRN (11:10)
[2020-01-22] MEDS ORDERED: FENTANYL CITRATE INJ/PF 100 MCG/2 ML AMPUL IV PRN ×3 (11:10)
[2020-01-22] MEDS ORDERED: MEPERIDINE HCL/PF INJ 25 MG/1 ML DISP.SYRIN IV PRN (11:10)
[2020-01-22 11:20] LABS: ANION GAP 10 (5-19); BLOOD UREA NITROGEN 19 mg/dL (7-20); CALCIUM 9.6 mg/dL (8.4-10.2); CARBON DIOXIDE 25 mmol/L (22-30); CHLORIDE 104 mmol/L (98-107); GLUCOSE 94 mg/dL (75-110); POTASSIUM 4.4 mmol/L (3.6-5.0)
[2020-01-22] MEDS ORDERED: CEFAZOLIN 2 GM/D5W RTU 2 GM/50 ML RTUPB IV ONE (11:25)
[2020-01-22] MEDS ORDERED: CEFAZOLIN 1 GM/D5W RTU 1 GM/50 ML RTUPB IV ONE (11:25)
--- NOTE | 2020-01-22 12:14 | Discharge Summary ---
Discharge Summary (SDC) - Discharge Final Diagnosis: Retained hardware right wrist status post perilunate dislocation Date of Surgery: 01/22/20 Discharge Date: 01/22/20 Condition: Good Treatment or Instructions: Schedule Follow Up w/ Dr. Emanuel Mondragon @ [facility] for Surgery to be seen in 10-14 days or as scheduled [place]: [place]: [place]: May remove dressing on postop day #3, keep incision covered and dry. Ice and elevate May begin finger range of motion attempting to make full fist. Stool softener of choice when on pain medication. USE OF [id number] IBUPROFEN: Ibuprofen (Advil, Nuprin, Medipren, Motrin IB) is a medication for fever and pain control. In addition, it has anti- inflammatory effects which may be beneficial, especially in the treatment of injuries. It's best to take ibuprofen with food. Persons with ulcer disease or allergy to aspirin should notify their physician of this before taking ibuprofen. Ibuprofen can be given every four to six hours, for a total of four doses daily. Age Pain or fever dose Antiinflammatory dose 6-8 yr 200 mg (1 tab) 200 mg (1 tab) 9-11 yr 200 mg (1 tab) 200-400 mg (1-2 tab) 11-14 yr 200-400 mg (1-2 tab) 400 mg (2 tab) 15-adult 400 mg (2 tab) 600 mg (3 tab) ORAL NARCOTIC MEDICATION: You have been given a prescription for pain control. This medication is a narcotic. It's best taken with food, as nausea can result if taken on an empty stomach. Don't operate machinery or drive within six hours of taking this medication. Do not combine this medicine with alcohol, or with any medication which can cause sedation (such as cold tablets or sleeping pills) unless you get permission from the physician. Narcotics tend to cause constipation. If possible, drink plenty of fluids and eat a diet high in fiber and fruits. Please be aware that prescription narcotics also have the potential for abuse. People become addicted to these medications because of the general sense of wellbeing that they induce. This feeling along with a significant reduction in tension, anxiety, and aggression provides a stimulating seductive quality to these drugs. Once your pain is under control, we encourage you to discard your unused narcotics. Prescriptions: Sulfamethoxazole/Trimethoprim [Bactrim Ds Tablet] 1 each PO Q12 #14 tablet Oxycodone HCl/Acetaminophen [Percocet 5-325 mg Tablet] 1 tab PO Q6 PRN #25 tab PRN Reason: Referrals: CELSA PETERS PA [Primary Care Provider] - Discharge Diet: As Tolerated Respiratory Treatments at Home: Deep Breathing/Coughing, Incentive Spirometer Discharge Activity: No Lifting Over 10 Pounds, No Lifting/Push/Pulling Report the Following to Your Physician Immediately: Fever over 101 Degrees, Unusual Bleeding, Redness, Swelling, Warmth, Increased Soreness
--- NOTE | 2020-01-22 12:14 | Operative Report ---
Operative Report DATE OF SURGERY: 01/22/20 PREOPERATIVE DIAGNOSIS: Painful Retained Hardware Right Wrist status post open reduction internal fixation perilunate dislocation POSTOPERATIVE DIAGNOSIS: Same OPERATION: Removal of deep hardware/K wires right wrist SURGEON: MARINA CASTRO ANESTHESIA: LMAC COMPLICATIONS: None ESTIMATED BLOOD LOSS: Minimal PROCEDURE: Indication for above procedure: 39-year-old male who sustained a fall onto his right wrist resulting in a transstyloid perilunate fracture dislocation. Patient underwent operative in tervention. Sequential radiographs demonstrate maintained alignment of the perilunate dislocation. At that time decision was made to proceed with hardware removal. In the past 24 hours patient did have 2 of the pins on the ulnar aspect spontaneously fall out. Thus we will proceed with radial sided pin removal. Risk and benefits of the surgical procedure were explained patient verbalized understanding consented for surgery procedure. Procedure In Detail: Patient was seen and evaluated in the preoperative holding area. The [facility] upper extremity was initialized and marked. Patient received 3 g of Ancef IV for bacterial prophylaxis. Patient was taken back to the operative room where transferred to the operative table and placed under anesthesia. Once they were adequately anesthetized a nonsterile tourniquet was placed on the upper extremity. A surgical team debriefing was performed ensuring all instrumentation was available, the surgical procedure was discussed with possib le concerns reviewed. The upper extremity was prepped with chlorhexidine and alcohol and draped in a sterile fashion. Pin site was prepped with alcohol and 7 cc of 1% lidocaine with epinephrine was injected. A timeout was done identifying correct patient, procedure and extremity everyone in attendance agree with this and verbalized no concerns. Small stab incision was made ulnarly. Blunt dissection was performed, superficial radial nerve and extensor tendons were identified and retracted. The scapholunate pins x2 were isolated and removed. With C arm fluoroscopy the radial styloid pins were then successfully removed. And finally the scaphoid capitate pin was removed. Wound was copiously irrigated with normal saline. The ulnar wound was also opened and irrigated with saline. Final C arm was obtained demonstrating maintained intercarpal alignment with range of motion. No evidence of dynamic instability on live fluoroscopy. Skin incisions were closed with interrupted 4-0 nylon suture and a soft dressing placed. Sponge counts, instrument counts, needle counts were correct. Patient was then awoken from anesthesia. Transferred from the operating room table to the operat ing room stretcher. There was no intraoperative complications patient tolerated procedure well stable to PACU. Postop plan: Patient follow in the office in 2 weeks at which point we will obtain rad iographs. Patient will begin radiocarpal range of motion immediately. We will continue brace for protection.
[2020-01-22 14:06] VITALS: BP 150/95
--- NOTE | 2020-01-22 14:24 | RADIOLOGY REPORT (SQ) ---
EXAM DESCRIPTION: WRIST RIGHT 2 VIEWS; NO CHG FLUORO IMAGES COMPLETED DATE/TIME: 01/22/2020 2:16 pm REASON FOR STUDY: HARDWARE REMOVAL RIGHT WRIST ASSISTED WITH FLUORO IN OR S63.034A DISLOCATION OF M IDCARPAL JOINT OF RIGHT WRIST, INIT COMPARISON: 11/14/2019 FLUOROSCOPY TIME: 4 seconds 2 images saved to PACS. TECHNIQUE: Intra-operative images acquired during surgical procedure to evaluate progress. NUMBER OF IMAGES: 2 LIMITATIONS: None. FINDINGS: Intraoperative fluoroscopic images obtained demonstrate evidence of Shar wire removal . Please see operative report for detailed description. IMPRESSION: IMAGE(S) OBTAINED DURING PROCEDURE. COMMENT: Quality ID [id number]: Final reports for procedures using fluoroscopy that document radiation exp osure indices, or exposure time and number of fluorographic images (if radiation exposure indices are not available) Please consult full operative report of the attending physician for description of the procedure. TECHNICAL DOCUMENTATION: JOB ID: [id number] 2010 [employer]- All Rights Reserved Reading location - IP/workstation name: [email or web address]
--- NOTE | 2020-01-22 14:24 | RADIOLOGY REPORT (SQ) ---
EXAM DESCRIPTION: WRIST RIGHT 2 VIEWS; NO CHG FLUORO IMAGES COMPLETED DATE/TIME: 01/22/2020 2:16 pm REASON FOR STUDY: HARDWARE REMOVAL RIGHT WRIST ASSISTED WITH FLUORO IN OR S63.034A DISLOCATION OF M IDCARPAL JOINT OF RIGHT WRIST, INIT COMPARISON: 11/14/2019 FLUOROSCOPY TIME: 4 seconds 2 images saved to PACS. TECHNIQUE: Intra-operative images acquired during surgical procedure to evaluate progress. NUMBER OF IMAGES: 2 LIMITATIONS: None. FINDINGS: Intraoperative fluoroscopic images obtained demonstrate evidence of Shar wire removal . Please see operative report for detailed description. IMPRESSION: IMAGE(S) OBTAINED DURING PROCEDURE. COMMENT: Quality ID [id number]: Final reports for procedures using fluoroscopy that document radiation exp osure indices, or exposure time and number of fluorographic images (if radiation exposure indices are not available) Please consult full operative report of the attending physician for description of the procedure. TECHNICAL DOCUMENTATION: JOB ID: [id number] 2010 [employer]- All Rights Reserved Reading location - IP/workstation name: [email or web address]
== END 2020-01-22 14:00 | disposition home or self-care (01) ==
LOC: OROUT 09:56
PROVIDERS: ATTEND Orthopaedic Surgery
DX: T84.84XA Pain due to internal orthopedic prosthetic devices, implants and grafts, initial encounter (principal); X58.XXXA Exposure to other specified factors, initial encounter; G89.18 Other acute postprocedural pain; I10 Essential (primary) hypertension; F32.9 Major depressive disorder, single episode, unspecified; G47.33 Obstructive sleep apnea (adult) (pediatric); E66.9 Obesity, unspecified; Z79.899 Other long term (current) drug therapy; Z03.818 Encounter for observation for suspected exposure to other biological agents ruled out
CPT/HCPCS: 20680; 36415; 85027; 87635; 80048; 73100; 01830; J2250; J0690 ×2; J3010; J3490 ×3; J2405; J2704; C9803; J7060